=== PATIENT | male | born 1995 | race Caucasian/White ===

== ENCOUNTER 2018-07-06 18:19 | Emergency (ER) | payer BC ==
[2018-07-06 18:29] VITALS: BP 139/85
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
== END 2018-07-06 19:46 | disposition home or self-care (01) ==
LOC: JD.ED 18:19
DX: S60.450A Superficial foreign body of right index finger, initial encounter (principal); S60.451A Superficial foreign body of left index finger, initial encounter; F17.210 Nicotine dependence, cigarettes, uncomplicated; W46.0XXA Contact with hypodermic needle, initial encounter
CPT/HCPCS: 86317; 86803; 87340; 99283; G0433; 36415

== ENCOUNTER 2018-08-20 13:31 | Emergency (ER) | payer BC ==
[2018-08-20] MEDS ORDERED: Bupivacaine 0.5% 10 ML SDV INJECT ONE (13:42)
[2018-08-20] MEDS ORDERED: Acetaminophen/HYDROcodone 325-10 MG Tab PO ONE (13:42)
[2018-08-20] MEDS ORDERED: Diphtheria,Pertussis(Acell),Tetanus Vaccine 0.5 ML Syringe IM ONE (13:46)
[2018-08-20] MEDS ORDERED: Sodium Chloride 0.9% 1,000 ML ONE (13:49)
[2018-08-20] MEDS ORDERED: ceFAZolin 1 GM in Premix Bag 1 BAG IV ONE (14:02)
[2018-08-20] MEDS ORDERED: Sodium Chloride 0.9% 1,000 ML IV ONE (14:03)
--- NOTE | 2018-08-20 14:38 | CR ---
Left hand: Three views of the left hand were obtained. Comparison: Prior left second finger exam of 10/07/14. Soft tissue and bony amputation noted within the distal third finger. Mild deformity compatible with old healed fracture is noted within the fifth metacarpal. No additional abnormality is appreciated. Impression: 1. Soft tissue and bony amputation within the distal third finger. 2. Other incidental finding as noted above. Diagnostic code #3
--- NOTE | 2018-08-20 15:44 | EDM.PDOC ---
ED HPI GENERAL MEDICAL PROBLEM - General Chief Complaint: Laceration Stated Complaint: L MIDDLE FINGER LAC Time Seen by Provider: 08/20/18 13:41 Source of Information: Reports: Patient History Limitations: Reports: No Limitations - History of Present Illness INITIAL COMMENTS - FREE TEXT/NARRATIVE: 22-year-old male presents to emergency room with chief complaints of left middle finger laceration. Patient reports while using his hands saw his hand slipped cutting the tip of his left finger. He is uncertain of his last tetanus shot. Patient is right-handed. Patient reports he does not have a PCP. Onset: Today, Sudden Onset Date: 08/20/18 Onset Time: 12:00 Location: Reports: Upper Extremity, Left Quality: Reports: Ache, Throbbing Severity: Moderate Improves with: Reports: None Worsens with: Reports: None Context: Reports: Trauma Associated Symptoms: Denies: Fever/Chills, Nausea/Vomiting, Weakness Left Finger-Middle Pain Score (Numeric/FACES): 10 - Related Data Allergies Allergy/AdvReac Type Severity Reaction Status Date / Time No Known Allergies Allergy Verified 07/06/18 18:29 Home Meds: Home Meds Doxycycline [Vibramycin] 100 mg PO BID #20 tab 08/20/18 [Rx] Hydrocodone/Acetaminophen [Todd 7.5-325 Tablet] 1 each PO Q6HR PRN 10 Days #20 tablet 08/20/18 [Rx] Past Medical History - Past Health History Medical/Surgical History: Denies Medical/Surgical History HEENT History: Reports: Allergic Rhinitis Psychiatric History: Reports: ADD, Addiction Other Psychiatric History: Patient states he has been sober from alcohol for "6 months" - Past Surgical History HEENT Surgical History: Reports: Oral Surgery Social & Family History - Family History Family Medical History: Noncontributory - Tobacco Use Smoking Status *Q: Current Every Day Smoker Years of Tobacco use: 5 Packs/Tins Daily: 1 - Caffeine Use Caffeine Use: Reports: Soda - Recreational Drug Use Recreational Drug Use: No - Living Situation & Occupation Living situation: Reports: Single, with Significant Other (Fiance), with Family (2 kids) Occupation: Employed ([employer]) ED ROS GENERAL - Review of Systems Review Of Systems: See Below Constitutional: Reports: No Symptoms, Weight Gain Respiratory: Reports: No Symptoms Cardiovascular: Reports: No Symptoms Endocrine: Reports: No Symptoms GI/Abdominal: Reports: No Symptoms : Reports: No Symptoms Musculoskeletal: Reports: Joint Pain, Other (left middle fingertip laceration) Skin: Reports: Other (Left middle finger tip avulsion) Neurological: Reports: No Symptoms Psychiatric: Reports: No Symptoms Hematologic/Lymphatic: Reports: No Symptoms Immunologic: Reports: No Symptoms ED EXAM, SKIN/RASH Exam: See Below Exam Limited By: No Limitations General Appearance: Alert, WD/WN, No Apparent Distress Peripheral Pulses: 4+: Radial (L), Radial (R) Back Exam: Normal Inspection, Full Range of Motion Extremities: Normal Range of Motion, No Pedal Edema, Normal Capillary Refill, Other (Left middle finger tip avulsion and regular laceration noted neurovascularly intact) Neurological: Alert, Oriented, CN II-XII Intact, Normal Cognition, Normal Gait, Normal Reflexes, No Motor/Sensory Deficits Psychiatric: Normal Affect, Normal Mood, Anxious Skin: Warm, Dry, Normal Color, No Rash, Other (Left middle finger avulsion and irregular laceration noted, neurovascularly intact) Location, Skin: Lower Extremity, Left Associated features: Tenderness, Inflammation Lymphatic: No Adenopathy Course - Vital Signs Last Recorded V/S: Last Vital Signs Temp 98.6 F 08/20/18 13:38 Pulse 94 08/20/18 13:38 Resp 22 H 08/20/18 13:38 BP Pulse Ox 100 08/20/18 13:38 - Orders/Labs/Meds Orders: Active Orders 24 hr Category Date Time Status Vaccines to be Administered [RC] PER UNIT ROUTINE Care 08/20/18 13:46 Active Meds: Medications Discontinued Medications Generic Name Dose Route Start Last Admin Trade Name Ryan PRN Reason Stop Dose Admin Hydrocodone Bitart/Acetaminophen 1 tab 08/20/18 13:42 08/20/18 13:58 Todd 325-10 Mg PO 08/20/18 13:43 1 tab ONETIME ONE Administration Bupivacaine HCl 10 ml 08/20/18 13:42 08/20/18 13:57 Sensorcaine-Mpf 0.5% INJECT 08/20/18 13:43 10 ml ONETIME ONE Administration Diphtheria/Tetanus/Acell Pertussis 0.5 ml 08/20/18 13:46 08/20/18 14:08 Adacel IM 08/20/18 13:47 0.5 ml .ONCE ONE Administration Sodium Chloride Confirm 08/20/18 13:49 08/20/18 13:58 Normal Saline Administered 08/20/18 13:50 999 mls/hr Dose Administration 1,000 mls @ as directed .ROUTE .STK-MED ONE Cefazolin Sodium/Dextrose 1 gm 50 mls @ 100 mls/hr 08/20/18 14:02 08/20/18 14 :11 / Premix IV 08/20/18 14:31 100 mls/hr ONETIME ONE Administration Sodium Chloride 1,000 mls @ 999 mls/hr 08/20/18 14:03 08/20/18 14:07 Normal Saline IV 08/20/18 15:03 Not Given ONETIME ONE - Re-Assessments/Exams Free Text/Narrative Re-Assessment/Exam: 08/20/18 16:08 He received laceration repair, IV fluid, Todd and Ceftin and his condition improved. I will discharge home with laceration repair instructions. Instructed the patient on signs and symptoms of infection. Instructed patient to follow up with PCP in 12 days to have sutures removed. We'll discharge home with doxycycline for outpatient therapy. I with discharge home with a small amount of Todd for pain management. Instructed patient to take medication and drink drive or operate machine while taking this medication. Instructed the patient to increase his fiber intake THIS medication to prevent constipation patient returned worse or for any new or worsening symptoms. Departure - Departure Time of Disposition: 15:51 Disposition: Home, Self-Care 01 Condition: Good Clinical Impression: Fingernail avulsion, partial Qualifiers: Encounter type: initial encounter Qualified Code(s): S61.309A - Unspecified open wound of unspecified finger with damage to nail, initial encounter Laceration of finger Qualifiers: Encounter type: initial encounter Finger: middle finger Damage to nail status: with damage Foreign body presence: without foreign body Laterality: left Qualified Code(s): S61.313A - Laceration without foreign body of left middle finger with damage to nail, initial encounter - Discharge Information *PRESCRIPTION DRUG MONITORING PROGRAM REVIEWED*: Not Applicable *COPY OF PRESCRIPTION DRUG MONITORING REPORT IN PATIENT [place]: Not Applicable Prescriptions: Hydrocodone/Acetaminophen [Todd 7.5-325 Tablet] 1 each PO Q6HR PRN 10 Days #20 tablet PRN Reason: finger pain Doxycycline [Vibramycin] 100 mg PO BID #20 tab Instructions: Traumatic Finger Amputation, Laceration Care, Adult, [id number] , Stitches, [place], or Adhesive Wound Closure, [id number] Referrals: PCP,None [Primary Care Provider] - Forms: ED Department Discharge Additional Instructions: You have been diagnosed with a partial finger avulsion and amputation. Received IV fluid, Ancef, Todd tetanus and laceration. He will be discharged with doxycycline for antibiotic therapy take one tablet twice a day for the next 10 days. Advised if finger for signs of infection including but not limited to fever 101 or greater redness at the site warm to touch excretion of fluid that appears pulse light. Return to your PCP in 12 days to have sutures removed. I will discharge home with Todd for pain to not take this medication and drink drive or operate machinery while taking it. You should increase her fiber and fluid intake constipation while taking Todd. - My Orders Last 24 Hours: My Active Orders 08/20/18 13:46 Vaccines to be Administered [RC] PER UNIT ROUTINE - Assessment/Plan Last 24 Hours: My Active Orders 08/20/18 13:46 Vaccines to be Administered [RC] PER UNIT ROUTINE
== END 2018-08-20 16:35 | disposition home or self-care (01) ==
LOC: JD.ED 13:31
DX: S61.313A Laceration without foreign body of left middle finger with damage to nail, initial encounter (principal); W27.8XXA Contact with other nonpowered hand tool, initial encounter; F17.210 Nicotine dependence, cigarettes, uncomplicated; Z23 Encounter for immunization
CPT/HCPCS: 12004; 73120; 90471; 90700; 96365; 99283; A9270; J0690; J3490; J7040; 12042